=== PATIENT | male | born 1990 | race African-American/Black ===

== ENCOUNTER 2017-08-22 00:28 | Emergency (ER) | payer OTHER ==
[~2017-08-22] VITALS: Ht 180.3 cm; Wt 55.1 kg
[2017-08-22 00:57] LABS: AMPHETAMINE NEGATIVE (500 ng/mL); BARBITURATES NEGATIVE (200 ng/mL); BENZODIAZEPINES NEGATIVE (150 ng/mL); BUPRENORPHINE NEGATIVE (10 ng/mL); COCAINE NEGATIVE (150 ng/mL); METHADONE NEGATIVE (200 ng/mL); METHAMPHETAMINE NEGATIVE (500 ng/mL); OPIATES (MORPHINE) NEGATIVE (100 ng/mL); OXYCODONE NEGATIVE (100 ng/mL); PHENCYCLIDINE NEGATIVE (25 ng/mL); PROPOXYPHENE NEGATIVE (300 ng/mL); THC CANNABINOIDS NEGATIVE (50 ng/mL); TRICYCLIC ANTIDEPRESSANTS NEGATIVE (300 ng/mL)
[2017-08-22 01:19] LABS: HEMATOCRIT 45.7 % (38.0-50.0); HEMOGLOBIN 14.7 G/DL (12.5-16.6); MCH 23.9 PG (29.0-34.0); MCHC 32.2 G/DL (30.0-36.0); MCV 74.3 FL (86-99); PLATELET COUNT 209 K/uL (156-360); RBC DIS.WIDTH-CV 13.5 % (11.8-14.6); RBC DIS.WIDTH-SD 35.5 % (39-53); RED BLOOD COUNT 6.15 M/uL (4.00-5.50)
[2017-08-22 01:21] LABS: CHLORIDE 104 mEq/L (99-109); POTASSIUM 3.7 mEq/L (3.7-5.4); SODIUM 141 mEq/L (136-147)
[2017-08-22 01:23] LABS: GLUCOSE 82 mg/dL (70-99)
[2017-08-22 01:26] LABS: SERUM ETHYL ALCOHOL < 10 mg/dL
[2017-08-22 01:27] LABS: CREATININE 0.8 mg/dL (0.6-1.3); GFR ESTIMATE (CALCULATED) > 59 mL/min/ (58.99-99999)
[2017-08-22 01:28] LABS: UREA NITROGEN (BUN) 9 mg/dL (9-23)
[2017-08-22 02:40] VITALS: BP 129/88
== END 2017-08-22 03:01 | disposition home or self-care (01) ==
LOC: EME 00:28
DX: F32.9 Major depressive disorder, single episode, unspecified (principal)
CPT/HCPCS: 80048; 85027; 90839; 99281; 99284; G0480